=== PATIENT | male | born 1985 | race Caucasian/White ===

== ENCOUNTER 2019-03-02 12:29 | Emergency (ER) | payer SELFPAY ==
[~2019-03-02] VITALS: Ht 180.3 cm; Wt 93.0 kg
[2019-03-02 12:29] VITALS: BP 159/134
--- NOTE | 2019-03-02 12:40 | NUR ---
BIBA ALS FROM WORK C/O ALLERGIC REACTION, HIVES ALL OVER BODY AND C/O SOB. 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 PT ARRIVED WITH IV TO LEFT HAND 20 GAUGE, RECEIVED 300CC NS, BS 101. LUNG SOUNDS CLEAR ALL THROUGHOUT. NO RESP DISTRESS NOTED. AIRWAY IS PATENT AND CLEAR. PT SKIN IS WARM TO TOUCH AND SKIN COLOR IS PINK. VSS. NO SOB. HX DENIES
[2019-03-02] MEDS ORDERED: methylPREDNISolone SS 125 MG/2 ML VIAL IVP ONE (12:50)
[2019-03-02 14:35] VITALS: BP 129/74
--- NOTE | 2019-03-02 14:38 | NUR ---
DPatient discharged with v/s stable. Written and verbal after care instructions given ABOUT DRUG ALLERGIES AND explained. Patient alert, oriented and verbalized understanding of instructions. Ambulatory with steady gait. All questions addressed prior to discharge. ID band removed. Patient advised to follow up with PMD. Rx of BENADRYL AND PREDNISONE given. Patient educated on indication of medication including possible reaction and side effects. Opportunity to ask questions provided and answered. PATIENT UNDERSTANDS TO NOTIFY FUTURE HEALTHCARE PROVIDERS ABOUT PENICILLIN ALLERGY.
== END 2019-03-02 14:38 | disposition home or self-care (01) ==
LOC: EDBD 12:29 → MED 12:29
DX: R11.2 Nausea with vomiting, unspecified (principal); R21 Rash and other nonspecific skin eruption; R06.02 Shortness of breath; T36.0X5A Adverse effect of penicillins, initial encounter; F17.210 Nicotine dependence, cigarettes, uncomplicated; Z88.1 Allergy status to other antibiotic agents; Y92.89 Other specified places as the place of occurrence of the external cause
CPT/HCPCS: 82948; 96374; 99283; J2930